=== PATIENT | male | born 1990 | race Caucasian/White ===

== ENCOUNTER 2019-09-09 00:54 | Emergency (ER) | payer MEDICAID, OTHER ==
[~2019-09-09] VITALS: Ht 180.3 cm; Wt 88.4 kg
[~2019-09-09 00:54] MED LIST: AZIT500T2 PO; BENZ-16 PO; GUAI473S11 PO; NO HOME MEDS
[2019-09-09] MEDS ORDERED: loperamide 2mg capsule PO ONE (01:05)
[2019-09-09] MEDS ORDERED: LOPE2CAP PO (01:12)
[2019-09-09 01:30] VITALS: BP 122/53
== END 2019-09-09 01:31 | disposition home or self-care (01) ==
LOC: ER 00:55
DX: R19.7 Diarrhea, unspecified (principal); R11.0 Nausea; Z88.8 Allergy status to other drugs, medicaments and biological substances; Z88.0 Allergy status to penicillin; Z79.899 Other long term (current) drug therapy
CPT/HCPCS: 99282